=== PATIENT | male | born 1955 | race Caucasian/White ===

== ENCOUNTER → 2017-05-02 | Outpatient (CLI) | payer BC | LOC: CARD 13:34 | PROVIDERS: ATTEND Internal Medicine Cardiovascular Disease | DX: E11.9 Type 2 diabetes mellitus without complications (principal); R07.89 Other chest pain; R60.9 Edema, unspecified; E78.2 Mixed hyperlipidemia; E66.01 Morbid (severe) obesity due to excess calories; Z82.49 Family history of ischemic heart disease and other diseases of the circulatory system | CPT/HCPCS: 93306 ==

== ENCOUNTER → 2017-05-15 | Outpatient (CLI) | payer BC ==
[~2017-05-15] VITALS: Ht 177.8 cm; Wt 152.4 kg
[~2017-05-15] MED LIST: CATHETER FLUSH 10 ML SYR IV PRN
[2017-05-15 09:26] VITALS: BP 138/77
[2017-05-15 09:32] VITALS: BP 184/87
[2017-05-15 09:35] VITALS: BP 200/98
[2017-05-15 09:37] VITALS: BP 179/99
--- NOTE | 2017-05-15 14:09 | STRESS TEST ---
PROCEDURE PHYSICIAN: MARIBELL CUELLAR DATE OF PROCEDURE: 05/15/2017 EXERCISE MYOVIEW STRESS TEST REPORT: PRIMARY PHYSICIAN: Dr. Varner BASELINE HEART RATE: BASELINE BLOOD PRESSURE: 138/77 BASELINE EKG: Sinus rhythm with no ischemic changes. IN SUMMARY: The patient was injected with 10.71 mCi of technetium 99 Myoview and the resting images were obtained. Then the patient started exercising with a baseline heart rate, blood pressure, EKG mentioned above. At minute 3, the patient was injected with 31.8 mCi of technetium 99 Myoview and was able to finish a total of 3 minutes on standard Mathieu protocol, achieving maximum heart rate of 144, which is 92% of maximum expected heart rate. With peak exercise level, blood pressure was 200/98. EKG was showing minimal nondiagnostic changes. During recovery, heart rate and blood pressure returned to baseline. EKG returned to baseline. The resting and stress images were reviewed and compared in the short axis, horizontal long axis, and vertical long axis views. Review of the images showed diaphragmatic attenuation with typical male pattern. No significant ischemia or infarction was seen. SSS is 4, SDS 4, TID value 1.03. On the gated images, the left ventricle appeared to be normal size with normal contractility. Calculated ejection fraction 66%. IN CONCLUSION: 1. Poor exercise tolerance a total of 3 minutes on standard Mathieu protocol. Total of 4.6 METs, achieving 92% of maximum expected heart rate. 2. Appropriate heart rate with hypertensive response to exercise, returned to baseline during recovery. 3. Diaphragmatic attenuation with typical male pattern. No significant ischemia or infarction was seen. 4. Normal left ventricular size with normal contractility. Calculated ejection fraction 66%. Job ID: [id number] Dictated Date: 05/15/2017 12:27:00 Cold Reduction Roller Date: 05/15/2017 14:04:10 / yuly
== END ==
LOC: CARD 07:58
PROVIDERS: ATTEND Internal Medicine Cardiovascular Disease
DX: Z82.49 Family history of ischemic heart disease and other diseases of the circulatory system; R60.9 Edema, unspecified; R07.89 Other chest pain; E11.9 Type 2 diabetes mellitus without complications; E66.01 Morbid (severe) obesity due to excess calories; E78.2 Mixed hyperlipidemia
CPT/HCPCS: 78452; 93017